=== PATIENT | female | born 1980 | race Caucasian/White ===

== ENCOUNTER → 2022-05-14 16:49 | Outpatient (BNVA) | payer BC, SELFPAY | PROVIDERS: Visit Provider Nurse Practitioner Family | DX: Z86.718 Personal history of other venous thrombosis and embolism (principal); Z86.711 Personal history of pulmonary embolism; E89.0 Postprocedural hypothyroidism; Z87.19 Personal history of other diseases of the digestive system; F17.200 Nicotine dependence, unspecified, uncomplicated; C64.9 Malignant neoplasm of unspecified kidney, except renal pelvis; R60.9 Edema, unspecified | CPT/HCPCS: 80053 ==

== ENCOUNTER → 2022-07-01 15:11 | Outpatient (BNVA) | payer BC, SELFPAY | PROVIDERS: Visit Provider Obstetrics & Gynecology | DX: Z01.419 Encounter for gynecological examination (general) (routine) without abnormal findings (principal) | CPT/HCPCS: 87624 ==

== ENCOUNTER → 2022-07-15 15:53 | Outpatient (BNVA) | payer BC, SELFPAY | PROVIDERS: Visit Provider Obstetrics & Gynecology | DX: Z12.4 Encounter for screening for malignant neoplasm of cervix (principal) | CPT/HCPCS: 76830 ==

== ENCOUNTER 2022-08-01 14:01 | Outpatient (CLI) | payer BC, SELFPAY ==
--- NOTE | 2022-08-01 14:13 | MM_ITS ---
WS: [id number] BILATERAL 3D TOMOSYNTHESIS DIGITAL SCREENING MAMMOGRAPHY WITH CAD CLINICAL INFORMATION: screening HISTORY: Screening mammogram. No current complaints. COMPARISON: None. TECHNIQUE: Bilateral CC and MLO views. FINDINGS: Scattered fibroglandular densities bilaterally. No suspicious focal mass, asymmetry, calcifications, or architectural distortion. No evidence of malignancy. MM/[place] [id number] IMPRESSION: BI-RADS: 1-Negative FOLLOW UP: 1 Year Follow-up Recommend return to annual screening mammography.
--- NOTE | 2022-08-01 14:13 | US_ITS ---
WS: [id number] ULTRASOUND SOFT TISSUES LEFT posterior chest. HISTORY: lump/mass left scapula possible cyst or lipoma COMPARISON: None available. TECHNIQUE: 2-D and color Doppler imaging is submitted. Ultrasound targeted to the area of palpable concern. No soft tissue mass identified. Normal appearanc e of the soft tissues. No increased vascularity. US/US soft tissue/extremity [id number] IMPRESSION: Negative ultrasound posterior LEFT chest wall. No mass identified.
== END 2022-08-01 14:02 | disposition home or self-care (01) ==
LOC: RAD 14:03
PROVIDERS: PCP Nurse Practitioner Family; Visit Provider Nurse Practitioner Family
DX: Z12.31 Encounter for screening mammogram for malignant neoplasm of breast (principal); R22.32 Localized swelling, mass and lump, left upper limb
CPT/HCPCS: 76882; 77063; 77067

== ENCOUNTER 2024-06-24 06:00 | Outpatient (CLI) | payer BC, SELFPAY ==
--- NOTE | 2024-06-24 | XR_ITS ---
WS: [id number] XR cervical spine min 6V [id number] REASON FOR EXAM: RADICULOPATHY CERVICAL REGION FINDINGS: Mild reversal of the normal lordosis of the cervical spine. No focal vertebral body abnormality. Mild narrowing of the disc space C5-C6 with moderate anterior osteophyte of the C5 vertebral body. No significant narrowing of the neural foramina on the oblique views. With flexion there is slight anterior shift of the C5 vertebral body in relation to the C6 vertebral body with accentuation of the reversed lordosis. No abnormality in extension. XR/XR cervical spine min 6V [id number] IMPRESSION: Degenerative spondylosis of the cervical spine at C5-C6 as above.
== END 2024-06-24 06:01 | disposition home or self-care (01) ==
LOC: RADOUTREAD 06-28 05:28
PROVIDERS: PCP Physician Assistant; Visit Provider Physician Assistant
DX: M54.2 Cervicalgia (principal)